=== PATIENT | female | born 1975 | race African-American/Black ===

== ENCOUNTER 2021-04-18 21:53 | Emergency (ER) | payer MEDICAID ==
[~2021-04-18] VITALS: Ht 167.6 cm; Wt 61.0 kg
[2021-04-18 22:03] VITALS: BP 113/79
== END 2021-04-19 00:22 | disposition home or self-care (01) ==
LOC: ER 21:53
DX: T16.1XXA Foreign body in right ear, initial encounter (principal); X58.XXXA Exposure to other specified factors, initial encounter; Y93.89 Activity, other specified; Y92.9 Unspecified place or not applicable; Z91.19 Patient's noncompliance with other medical treatment and regimen
CPT/HCPCS: 99281

== ENCOUNTER 2021-04-21 09:08 | Emergency (ER) | payer MEDICAID ==
[~2021-04-21] VITALS: Ht 162.6 cm; Wt 75.0 kg
[2021-04-21] MEDS ORDERED: CIPDEX EACH EAR (10:14)
[2021-04-21 10:23] VITALS: BP 100/72
== END 2021-04-21 10:24 | disposition home or self-care (01) ==
LOC: ER 09:08
DX: T16.2XXA Foreign body in left ear, initial encounter (principal); T16.1XXA Foreign body in right ear, initial encounter; X58.XXXA Exposure to other specified factors, initial encounter; Y93.89 Activity, other specified; Y92.89 Other specified places as the place of occurrence of the external cause; Y99.8 Other external cause status
CPT/HCPCS: 99284; A4217; 99283

== ENCOUNTER 2021-05-31 10:39 | Emergency (ER) | payer MEDICAID ==
[~2021-05-31] VITALS: Ht 165.1 cm; Wt 70.0 kg
[~2021-05-31 10:39] MED LIST: CIPDEX EACH EAR
[2021-05-31 11:31] VITALS: BP 119/78
[2021-05-31] MEDS ORDERED: DOXY100C42 MT (12:56)
[2021-05-31] MEDS ORDERED: CEFTRIAXONE SODIUM 500 MG/VIAL IM ONE (13:00)
[2021-05-31] MEDS ORDERED: DOXYCYCLINE HYCLATE 100MG CAPSULE PO ONE (13:00)
[2021-05-31 13:10] LABS: CLARITY URINE CLOUDY (CLEAR); COLOR URINE YELLOW (YELLOW); KETONES URINE NEGATIVE (NEGATIVE); LEUKOCYTE ESTERASE URINE 2+ (NEGATIVE); NITRITE URINE NEGATIVE (NEGATIVE); OCCULT BLOOD URINE TRACE (NEGATIVE); PH URINE 6.5 (4.5-8.0); PROTEIN URINE NEGATIVE (NEGATIVE); SPECIFIC GRAVITY URINE 1.009 (1.005-1.030); UROBILINOGEN URINE 0.2 E.U./dL (0.2-1.0)
[2021-05-31] MEDS ORDERED: METR-167 MT (14:35)
[2021-06-03 04:08] LABS: NEISSERIA GONORRHOEAE NAA Negative (Negative)
== END 2021-05-31 14:58 | disposition home or self-care (01) ==
LOC: ER 10:39
DX: J06.9 Acute upper respiratory infection, unspecified (principal); N73.9 Female pelvic inflammatory disease, unspecified; Z20.822 Contact with and (suspected) exposure to COVID-19
CPT/HCPCS: 81003; 81025; 87210; 87491; 87591; 96372; 99283; C9803; J0696; U0003; U0005

== ENCOUNTER 2021-08-23 08:51 | Emergency (ER) | payer MEDICAID ==
[~2021-08-23] VITALS: Ht 165.1 cm; Wt 68.0 kg
[~2021-08-23 08:51] MED LIST changes: +DOXY-326 MT; +METR-167 MT
[2021-08-23 08:56] VITALS: BP 99/75
[2021-08-23 10:15] LABS: CLARITY URINE TURBID (CLEAR); COLOR URINE YELLOW (YELLOW); KETONES URINE TRACE (NEGATIVE); LEUKOCYTE ESTERASE URINE 3+ (NEGATIVE); NITRITE URINE NEGATIVE (NEGATIVE); OCCULT BLOOD URINE 2+ (NEGATIVE); PH URINE 5.5 (4.5-8.0); PROTEIN URINE 1+ (NEGATIVE); SPECIFIC GRAVITY URINE 1.022 (1.005-1.030)
[2021-08-23] MEDS ORDERED: FLUCONAZOLE 150MG TABLET PO ONE (10:45)
[2021-08-23] MEDS ORDERED: DOXYCYCLINE HYCLATE 100MG CAPSULE PO ONE (10:45)
[2021-08-23] MEDS ORDERED: CEFTRIAXONE SODIUM 500 MG/VIAL IM ONE (10:45)
[2021-08-23] MEDS ORDERED: DOXY150T5 MT (11:01)
[2021-08-26 10:06] LABS: NEISSERIA GONORRHOEAE NAA Negative (Negative)
== END 2021-08-23 11:50 | disposition home or self-care (01) ==
LOC: ER 08:51
DX: N39.0 Urinary tract infection, site not specified (principal); D64.9 Anemia, unspecified; F17.210 Nicotine dependence, cigarettes, uncomplicated
CPT/HCPCS: 81003; 81025; 87086; 87491; 87591; 96372; 99283; J0696

== ENCOUNTER 2021-08-28 08:16 | Emergency (ER) | payer MEDICAID ==
[~2021-08-28] VITALS: Ht 167.6 cm; Wt 70.0 kg
[~2021-08-28 08:16] MED LIST changes: +DOXY150T5 MT
[2021-08-28] MEDS ORDERED: METR500T MT (09:51)
[2021-08-28 10:16] LABS: CLARITY URINE CLOUDY (CLEAR); COLOR URINE YELLOW (YELLOW); KETONES URINE NEGATIVE (NEGATIVE); LEUKOCYTE ESTERASE URINE 1+ (NEGATIVE); NITRITE URINE NEGATIVE (NEGATIVE); OCCULT BLOOD URINE TRACE (NEGATIVE); PROTEIN URINE NEGATIVE (NEGATIVE); SPECIFIC GRAVITY URINE 1.017 (1.005-1.030); UROBILINOGEN URINE 0.2 E.U./dL (0.2-1.0)
[2021-08-28] MEDS ORDERED: NITR-87 MT (10:27)
[2021-08-28 10:41] VITALS: BP 121/88
[2021-08-28 10:44] LABS: *AMPHETAMINES SCREEN URINE NEGATIVE (NEGATIVE); *BARBITURATES SCREEN URINE NEGATIVE (NEGATIVE); *BENZODIAZEPINES SCREEN URINE NEGATIVE (NEGATIVE)
[2021-08-28 10:45] LABS: *COCAINE SCREEN URINE NEGATIVE (NEGATIVE); CANNABINOID URINE SCREEN NEGATIVE (NEGATIVE); METHADONE URINE SCREEN NEGATIVE (NEGATIVE); OPIATES URINE SCREEN NEGATIVE (NEGATIVE); PHENCYCLIDINE URINE SCREEN NEGATIVE (NEGATIVE)
[2021-09-01 04:07] LABS: NEISSERIA GONORRHOEAE NAA Negative (Negative)
== END 2021-08-28 10:43 | disposition home or self-care (01) ==
LOC: ER 08:16
DX: N76.0 Acute vaginitis (principal); B96.89 Other specified bacterial agents as the cause of diseases classified elsewhere; A59.03 Trichomonal cystitis and urethritis; N39.0 Urinary tract infection, site not specified
CPT/HCPCS: 80305; 81003; 81025; 87210; 87491; 87591; 99283

== ENCOUNTER 2021-12-08 09:08 | Emergency (ER) | payer MEDICAID ==
[~2021-12-08] VITALS: Ht 165.1 cm; Wt 61.0 kg
[~2021-12-08 09:08] MED LIST changes: +METR500T MT; +NITR-87 MT
[2021-12-08 09:14] VITALS: BP 102/65
[2021-12-08] MEDS ORDERED: CEFTRIAXONE SODIUM 500 MG/VIAL IM ONE (09:30)
[2021-12-08] MEDS ORDERED: LIDOCAINE HCL 1% 20ML VIAL (Pyxis) INJ INFIL ONE (09:30)
[2021-12-08] MEDS ORDERED: DOXY100C5 MT (09:48)
[2021-12-08 10:29] LABS: METHADONE URINE SCREEN NEGATIVE (NEGATIVE)
[2021-12-08 10:30] LABS: *AMPHETAMINES SCREEN URINE NEGATIVE (NEGATIVE); *BARBITURATES SCREEN URINE NEGATIVE (NEGATIVE); *BENZODIAZEPINES SCREEN URINE NEGATIVE (NEGATIVE); CANNABINOID URINE SCREEN NEGATIVE (NEGATIVE); OPIATES URINE SCREEN NEGATIVE (NEGATIVE); PHENCYCLIDINE URINE SCREEN NEGATIVE (NEGATIVE)
[2021-12-08 10:52] LABS: *COCAINE SCREEN URINE PRESUMTIVE POSITIVE (NEGATIVE)
[2021-12-11 05:12] LABS: NEISSERIA GONORRHOEAE NAA Negative (Negative)
== END 2021-12-08 10:15 | disposition home or self-care (01) ==
LOC: ER 09:08
DX: Z11.3 Encounter for screening for infections with a predominantly sexual mode of transmission (principal); F14.129 Cocaine abuse with intoxication, unspecified
CPT/HCPCS: 80305; 87491; 87591; 96372; 99283; J0696; J3490

== ENCOUNTER 2021-12-15 16:30 | Emergency (ER) | payer MEDICAID ==
[~2021-12-15] VITALS: Ht 162.6 cm; Wt 61.0 kg
[~2021-12-15 16:30] MED LIST changes: +DOXY100C5 MT
[2021-12-15 17:30] VITALS: BP 143/77
== END 2021-12-15 17:45 | disposition home or self-care (01) ==
LOC: ER 16:30
DX: Z20.2 Contact with and (suspected) exposure to infections with a predominantly sexual mode of transmission (principal)
CPT/HCPCS: 99281

== ENCOUNTER 2021-12-30 06:11 | Emergency (ER) | payer MEDICAID ==
[~2021-12-30] VITALS: Ht 162.6 cm; Wt 62.0 kg
[2021-12-30 06:38] VITALS: BP 127/79
== END 2021-12-30 10:08 | disposition left against medical advice (07) ==
LOC: ER 06:11
DX: Z53.21 Procedure and treatment not carried out due to patient leaving prior to being seen by health care provider (principal)

== ENCOUNTER 2022-01-26 03:22 | Emergency (ER) | payer MEDICAID ==
[~2022-01-26] VITALS: Ht 165.1 cm; Wt 70.0 kg
[2022-01-26 03:24] VITALS: BP 142/68
== END 2022-01-26 03:51 | disposition left against medical advice (07) ==
LOC: ER 03:29
DX: F22 Delusional disorders (principal)
CPT/HCPCS: 99283

== ENCOUNTER 2022-08-12 10:09 | Emergency (ER) | payer MEDICAID ==
[~2022-08-12] VITALS: Ht 162.6 cm; Wt 60.0 kg
[2022-08-12 10:20] VITALS: BP 106/73
[2022-08-12 12:52] LABS: CLARITY URINE CLEAR (CLEAR); COLOR URINE YELLOW (YELLOW); KETONES URINE NEGATIVE (NEGATIVE); LEUKOCYTE ESTERASE URINE NEGATIVE (NEGATIVE); NITRITE URINE NEGATIVE (NEGATIVE); OCCULT BLOOD URINE TRACE (NEGATIVE); PROTEIN URINE NEGATIVE (NEGATIVE); SPECIFIC GRAVITY URINE 1.011 (1.005-1.030); UROBILINOGEN URINE 0.2 E.U./dL (0.2-1.0)
[2022-08-12] MEDS ORDERED: METR60GE TP (15:43)
[2022-08-12] MEDS ORDERED: METR60GE VG ×3 (15:47→15:52)
[2022-08-15 05:11] LABS: NEISSERIA GONORRHOEAE NAA Negative (Negative)
== END 2022-08-12 16:45 | disposition home or self-care (01) ==
LOC: ER 10:09
DX: N76.0 Acute vaginitis (principal); L29.9 Pruritus, unspecified; Z79.899 Other long term (current) drug therapy
CPT/HCPCS: 81003; 81025; 87210; 87491; 87591; 99283

== ENCOUNTER 2023-02-15 03:19 | Emergency (ER) | payer MEDICAID ==
[~2023-02-15] VITALS: Ht 162.6 cm; Wt 71.1 kg
[~2023-02-15 03:19] MED LIST changes: -DOXY-326 MT; +DOXY-456 MT; +METR60GE VG
[2023-02-15] MEDS ORDERED: NAPR-1176 MT (05:11)
[2023-02-15 05:32] VITALS: BP 110/73
== END 2023-02-15 05:36 | disposition home or self-care (01) ==
LOC: ER 03:19
DX: M77.51 Other enthesopathy of right foot and ankle (principal)
CPT/HCPCS: 81025; 99283; Z7610; 99282

== ENCOUNTER 2023-09-26 18:59 | Emergency (ER) | payer MEDICAID, OTHER ==
[~2023-09-26 18:59] MED LIST changes: +NAPR-1176 MT
== END 2023-09-27 00:27 | disposition left against medical advice (07) ==
LOC: ER 18:59
DX: R68.89 Other general symptoms and signs (principal); Z53.21 Procedure and treatment not carried out due to patient leaving prior to being seen by health care provider
CPT/HCPCS: 99281